=== PATIENT | female | born 1985 | race Caucasian/White ===

== ENCOUNTER 2025-01-05 14:07 | Emergency (ER) | payer MEDICAID ==
[2025-01-05 14:10] VITALS: O2SAT 100
[2025-01-05] MEDS: LORazepam 1 MG tablet PO ONE (15:36)
[2025-01-05] MEDS: dexamethasone sod phosphate 10mg/ml inj PO STA (15:37)
[2025-01-05] MEDS: ketorolac trometh 30MG/ML vial 30 MG/ML VIAL IV ONE (15:39)
[2025-01-05 15:55] LABS: ALANINE AMINOTRANSFERASE 24 U/L (12-78); ALBUMIN 3.7 G/DL (3.4-5.0); ALBUMIN/GLOBULIN RATIO 1.2 (1.1-1.5); ALKALINE PHOSPHATASE 69 IU/L (46-116); ANION GAP 9 (8-16); ASPARTATE AMINO TRANSFERASE 18 U/L (10-37); BILIRUBIN,TOTAL 0.2 MG/DL (0.1-1.0); BLOOD UREA NITROGEN 19 MG/DL (7-18); BUN/CREATININE RATIO 26.4 (10.0-20.0); CALCIUM 8.6 MG/DL (8.5-10.1); CHLORIDE 109 MMOL/L (99-107); CREATININE 0.72 MG/DL (0.40-0.90); GLUCOSE 94 MG/DL (70-104); POTASSIUM 3.9 MMOL/L (3.5-5.1); SODIUM 144 MMOL/L (135-145); TOTAL CARBON DIOXIDE 26.3 MMOL/L (24-32); TOTAL PROTEIN 6.7 G/DL (6.4-8.2); eGFR > 90 ML/MIN
[2025-01-05] MEDS ORDERED: iohexol 350MG/ML 100ml bottle IV ONE (15:57)
[2025-01-05 16:19] LABS: HCG SERUM QL NEGATIVE
[2025-01-05] MEDS ORDERED: LIDO700A32 TOP (18:12)
[2025-01-05] MEDS ORDERED: CYCL-1 PO (18:12)
[2025-01-05] MEDS: nicotine 14mg patch - 24hr TD ONE (18:53)
[2025-01-05] MEDS ORDERED: ondansetron 4mg rapidly disintigrating tab PO ONE (19:20)
[2025-01-05] MEDS ORDERED: HYDROcodone/acetaminophen 10/325mg tab PO ONE (19:20)
[2025-01-05] MEDS ORDERED: nicotine 21mg patch - 24 hr TD ONE (19:20)
[2025-01-05 19:33] VITALS: BP 132/68; PULSE 96; RESP 16; TEMP 98.8
== END 2025-01-05 19:40 | disposition home or self-care (01) ==
LOC: EEVIPCON 14:08 → ER 14:08
DX: S16.1XXA Strain of muscle, fascia and tendon at neck level, initial encounter (principal); Y09 Assault by unspecified means; Y93.89 Activity, other specified; Y92.89 Other specified places as the place of occurrence of the external cause; Y99.8 Other external cause status
CPT/HCPCS: 36415; 70498; 80053; 84703; 96374; 99285; J1100; J1885; Q9967

== ENCOUNTER 2025-01-11 12:46 | Emergency (ER) | payer MEDICAID, OTHER ==
[~2025-01-11] VITALS: Ht 162.6 cm; Wt 51.0 kg
[~2025-01-11 12:46] MED LIST: CYCL-1 PO; LIDO700A32 TOP
[2025-01-11 12:58] VITALS: BP 116/87; PULSE 107; RESP 16; O2SAT 100
[2025-01-11] MEDS ORDERED: NAPR-56 PO (14:40)
[2025-01-11] MEDS: naproxen 500mg tablet PO ONE (14:46)
[2025-01-11 15:56] VITALS: TEMP 98.1
== END 2025-01-11 15:57 | disposition home or self-care (01) ==
LOC: EEVIPCON 12:46 → ER 12:46
DX: R07.81 Pleurodynia (principal); Z79.899 Other long term (current) drug therapy
CPT/HCPCS: 71101; 99283